=== PATIENT | male | born 1975 | race Caucasian/White ===

== ENCOUNTER 2016-10-04 09:19 | Day surgery (SDC) | payer OTHER ==
[~2016-10-04 09:19] MED LIST: Lactated Ringers 1,000 ML IV SCH; Lidocaine 1%/Sod Bicarbonate in NS 8.4% 1 ML Syringe PRN; Sodium Chloride 0.9% 10 ML Syringe FLUSH PRN
--- NOTE | 2016-10-04 12:01 | PCM.PREANE ---
Preanesthetic Assessment - Procedure Proposed Procedure: Left distal biceps tendon repair - Anesthesia/Transfusion/Family Hx Anesthesia History: Prior Anesthesia Without Reaction Family History of Anesthesia Reaction: No Transfusion History: No Prior Transfusion(s) - Review of Systems General: No Symptoms Pulmonary: No Symptoms Cardiovascular: No Symptoms Gastrointestinal: Other (GERD- currently not effecting him now) Neurological: No Symptoms Other: Reports: None - Physical Assessment NPO Status Date: 10/03/16 NPO Status Time: 18:30 O2 Sat by Pulse Oximetry: 99 Respiratory Rate: 16 Vital Signs: Last Vital Signs Temp 36.2 C 10/04/16 09:50 Pulse 59 L 10/04/16 09:50 Resp 16 10/04/16 09:50 BP 111/80 10/04/16 09:50 Pulse Ox 99 10/04/16 09:50 Height: 1.75 m Weight: 76.204 kg ASA Class: 2 Mental Status: Alert & Oriented x3 Airway Class: Mallampati = 1 Dentition: Reports: Normal Dentition Thyro-Mental Finger Breadths: 3 Mouth Opening Finger Breadths: 3 ROM/Head Extension: Full Lungs: Clear to Auscultation, Normal Respiratory Effort Cardiovascular: Regular Rate, Regular Rhythm - Lab Values: Laboratory Last Values WBC 8.16 K/mm3 (4.23-9.07) 09/28/16 16:27 RBC 4.68 M/mm3 (4.63-6.08) 09/28/16 16:27 Hgb 14.0 gm/L (13.7-17.5) 09/28/16 16:27 Hct 41.1 % (40.1-51.0) 09/28/16 16:27 MCV 87.8 fl (79.0-92.2) 09/28/16 16:27 MCH 29.9 pg (25.7-32.2) 09/28/16 16:27 MCHC 34.1 g/dl (32.2-35.5) 09/28/16 16:27 RDW Std Deviation 41.9 fL (35.1-43.9) 09/28/16 16:27 Plt Count 231 K/mm3 (163-337) 09/28/16 16:27 MPV 9.6 fl (9.4-12.3) 09/28/16 16:27 Neut % (Auto) 59.9 % (34.0-67.9) 09/28/16 16:27 Lymph % (Auto) 26.7 % (21.8-53.1) 09/28/16 16:27 Walker % (Auto) 9.8 % (5.3-12.2) 09/28/16 16:27 Eos % (Auto) 1.8 (0.8-7.0) 09/28/16 16:27 Baso % (Auto) 0.7 % (0.1-1.2) 09/28/16 16:27 Neut # (Auto) 4.88 K/mm3 (1.78-5.38) 09/28/16 16:27 Lymph # (Auto) 2.18 K/mm3 (1.32-3.57) 09/28/16 16:27 Walker # (Auto) 0.80 K/mm3 (0.30-0.82) 09/28/16 16:27 Eos # (Auto) 0.15 K/mm3 (0.04-0.54) 09/28/16 16:27 Baso # (Auto) 0.06 K/mm3 (0.01-0.08) 09/28/16 16:27 Sodium 139 mEq/L (136-145) 09/28/16 16:27 Potassium 4.4 mEq/L (3.5-5.1) 09/28/16 16:27 Chloride 103 mEq/L (98-107) 09/28/16 16:27 Carbon Dioxide 29 mEq/L (21-32) 09/28/16 16:27 Anion Gap 11.4 (5-15) 09/28/16 16:27 BUN 21 mg/dL (7-18) H 09/28/16 16:27 Creatinine 1.1 mg/dL (0.7-1.3) 09/28/16 16:27 Est Cr Clr Drug Dosing TNP 09/28/16 16:27 Estimated GFR (MDRD) > 60 mL/min (>60) 09/28/16 16:27 BUN/Creatinine Ratio 19.1 (14-18) H 09/28/16 16:27 Glucose 94 mg/dL (74-106) 09/28/16 16:27 Calcium 9.6 mg/dL (8.5-10.1) 09/28/16 16:27 MRSA (PCR) Negative 09/28/16 16:27 - Allergies Allergies/Adverse Reactions: Allergies Allergy/AdvReac Type Severity Reaction Status Date / Time codeine Allergy mental Verified 10/01/16 14:26 instability Penicillins Allergy Rash Verified 10/01/16 14:26 - Blood Blood Available: No Product(s) Available: None - Anesthesia Plan Pre-Op Medication Ordered: None - Acknowledgements Anesthesia Type Planned: General Anesthesia (OETT) Pt an Appropriate Candidate for the Planned Anesthesia: Yes Alternatives and Risks of Anesthesia Discussed w Pt/Guardian: Yes Pt/Guardian Understands and Agrees with Anesthesia Plan: Yes PreAnesthesia Questionnaire HEENT History: Reports: Allergic Rhinitis Cardiovascular History: Reports: None Respiratory History: Reports: None Gastrointestinal History: Reports: GERD Genitourinary History: Reports: None FRAUD EXAMINER History: Reports: None Musculoskeletal History: Reports: None Neurological History: Reports: None Psychiatric History: Reports: None Endocrine/Metabolic History: Reports: None Hematologic History: Reports: None Immunologic History: Reports: None Oncologic (Cancer) History: Reports: None Dermatologic History: Reports: Other (See Below) Other Dermatologic 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 - Past Surgical History Head Surgeries/Procedures: Reports: None HEENT Surgical History: Reports: LASIK, Oral Surgery Cardiovascular Surgical History: Reports: None Respiratory Surgical History: Reports: None GI Surgical History: Reports: None Endocrine Surgical History: Reports: None Neurological Surgical History: Reports: None Musculoskeletal Surgical History: Reports: None Oncologic Surgical History: Reports: None - SUBSTANCE USE Smoking Status *Q: Current Every Day Smoker Tobacco Use Within Last Twelve Months: Smokeless Tobacco, Snuff/Dip Second Hand Smoke Exposure: No Recreational Drug Use History: No - HOME MEDS Home Medications: Home Meds Esomeprazole Magnesium [Nexium] 20 mg PO DAILY 10/01/16 [History] Loratadine [Claritin] 10 mg PO DAILY PRN 10/01/16 [History] Magnesium 250 mg PO DAILY 10/01/16 [History] Multivitamin [Poly-Vitamin] 1 tab PO DAILY 10/01/16 [History] - CURRENT (IN HOUSE) MEDS Current Meds: Current Medications Lactated Ringer's (Ringers, Lactated) 1,000 mls @ 125 mls/hr IV ASDIRECTED VIC Stop: 10/04/16 23:00 Last Admin: 10/04/16 10:55 Dose: 125 mls/hr Lidocaine/Sodium Bicarbonate (Buffered Lidocaine 1% In Ns 8.4%) 0.25 ml .XX ONETIME PRN PRN Reason: Prior to IV Start Stop: 10/04/16 18:00 Last Admin: 10/04/16 10:55 Dose: 0.25 ml Sodium Chloride (Saline Flush) 10 ml FLUSH ASDIRECTED PRN PRN Reason: Keep Vein Open Stop: 10/04/16 18:00
[2016-10-04] MEDS ORDERED: fentaNYL 250 MCG/5 ML SDV ONE (12:27)
[2016-10-04] MEDS ORDERED: Midazolam 1 MG/ML 2 ML SDV ONE (12:27)
[2016-10-04] MEDS ORDERED: Propofol 200 MG/20 ML SDV ONE (12:27)
[2016-10-04] MEDS ORDERED: Lidocaine 1% 4 ML ONE (12:28)
[2016-10-04] MEDS ORDERED: Ondansetron 4 MG/2 ML SDV ONE (12:28)
[2016-10-04] MEDS ORDERED: Rocuronium 50 MG/5 ML Vial ONE (12:28)
[2016-10-04] MEDS ORDERED: Dexamethasone 4 MG/ML 5 ML MDV ONE (12:28)
[2016-10-04] MEDS ORDERED: ceFAZolin 1 GM Vial ONE (12:30)
[2016-10-04] MEDS ORDERED: Bupivacaine 0.25% 30 ML SDV ONE (12:36)
[2016-10-04] MEDS ORDERED: ePHEDrine 50 MG/ML SDV ONE (14:05)
[2016-10-04] MEDS ORDERED: Neostigmine Methylsulfate 10 MG/10 ML MDV ONE (14:20)
[2016-10-04] MEDS ORDERED: Ketorolac 30 MG/ML SDV ONE (14:40)
[2016-10-04] MEDS ORDERED: Lactated Ringers 1,000 ML ONE ×2 (14:45)
--- NOTE | 2016-10-04 15:31 | PCM.POSTAN ---
POST ANESTHESIA ASSESSMENT - MENTAL STATUS Mental Status: Alert - VITAL SIGNS Pulse Rate: 81 SaO2: 92 Resp Rate: 15 Blood Pressure: 113/76 Temperature: 37.1 C - RESPIRATORY Respiratory Status: Respiratory Rate WNL, Airway Patent, O2 Saturation Stable - CARDIOVASCULAR CV Status: Pulse Rate WNL, Blood Pressure Stable - GASTROINTESTINAL GI Status: No Symptoms - PAIN Pain Score: 6 (PACU currently treating pain ) - POST OP HYDRATION Hydration Status: Adequate & Stable
[2016-10-04] MEDS ORDERED: diphenhydrAMINE 50 MG/ML SDV IVPUSH PRN (15:32)
[2016-10-04] MEDS ORDERED: fentaNYL 100 MCG/2 ML SDV IVPUSH PRN (15:32)
[2016-10-04] MEDS ORDERED: Ondansetron 4 MG/2 ML SDV IVPUSH PRN (15:32)
[2016-10-04] MEDS ORDERED: HYDROmorphone 0.5 MG/0.5 ML Syringe IVPUSH PRN (15:32)
[2016-10-04] MEDS ORDERED: Meperidine PF 50 MG/ML Syringe IVPUSH PRN (15:32)
[2016-10-04] MEDS: fentaNYL 100 MCG/2 ML SDV ONE ×2 (15:35→15:51)
[2016-10-04] MEDS ORDERED: fentaNYL 100 MCG/2 ML SDV ONE (15:44)
--- NOTE | 2016-10-04 16:23 | CR ---
Left elbow: Six fluoroscopic spot views were obtained of the left elbow showing biceps tendon repair. Fluoroscopy time given as 17.5 seconds. Impression: 1. Findings as noted above. Diagnostic code #2
[2016-10-04] MEDS ORDERED: Acetaminophen/HYDROcodone 325-5 MG Tab PO ONE (16:35)
[2016-10-04 17:37] VITALS: BP 125/95
--- NOTE | 2016-10-07 22:47 | PCM.OPNOTE ---
- General Post-Op/Procedure Note Date of Surgery/Procedure: 10/04/16 Operative Procedure(s): left distal biceps tendon repair Pre Op Diagnosis: left distal biceps tendon rupture Post-Op Diagnosis: Same Anesthesia Technique: General LMA, Local Primary Surgeon: Braden Khan Anesthesia Provider: Cristian Pino Control Clerk Food And Beverage: Peyton aJcobs EBL in mLs: 5 Complications: None Condition: Good
--- NOTE | 2016-10-07 23:39 | OR ---
DATE OF OPERATION: 10/04/2016 SURGEON: Braden Khan MD OPERATION PERFORMED: Left distal biceps tendon repair. PREOPERATIVE DIAGNOSIS: Left distal biceps tendon rupture. POSTOPERATIVE DIAGNOSIS: Left distal biceps tendon rupture. ANESTHESIA: General LMA with local. ANESTHESIA PROVIDER: Dr. Cristian Pino. REPAIRER AND CHECKER: Keely Diaz PA-C. ESTIMATED BLOOD LOSS: 5 mL. COMPLICATIONS: None. CONDITION: Stable. DESCRIPTION OF PROCEDURE: The patient was identified in the preop holding area. Proper site was marked and identified by the surgeon. The patient was taken back to the operating theater, where after adequate anesthesia, the patient's left upper extremity had a nonsterile tourniquet applied and was then sterilely prepped and draped in the usual sterile fashion. OR time-out was performed. The patient received 2 g IV Ancef. At this time, the left upper extremity was exsanguinated. Tourniquet was insufflated to 250 mmHg. A transverse incision was then made directly over the radial tuberosity. Joint dissection was taken down with the biceps tendon. The biceps tendon was noted to be peeled off its attachment. The radius at this time it was resected completely off and was thinned and then a FiberLoop was stitched through the last 2 cm of the biceps tendon. At this time, guide pin was placed in a distal 30 degree ulnar deviation into the radial tuberosity under direct C-arm fluoroscopy. It was put through both cortices at this time and an 8-mm reamer was then used through the proximal cortex only. At this time, the guide pin was then removed, the EndoButton was then placed on the biceps tendon and the FiberWire, and this was then placed through the distal cortex and was flipped and the distal biceps tendon was then shuttled down into the drill hole. A knot was then placed to make sure that it stayed in place and then a 7-mm Arthrex anchor was then tried to be placed in the drill hole, but it was found to be a little bit loose and 8-mm was then placed and found to have a good bite. This was then had a knot tied over the top of it. It was found to have adequate repair and had good strength with no pull out noted on range of motion. At this time, adequate saline was then irrigated through the wound. A 3-0 Vicryl was used subcutaneously and Monocryl was used for the skin with Dermabond. The patient was placed in a posterior slab splint in roughly 60 degrees and will come out of the splint to check the incision at his followup. JESSY /[id number]
== END 2016-10-04 17:30 | disposition home or self-care (01) ==
LOC: JD.SDS 09:19
PROVIDERS: ATTEND Orthopaedic Surgery
DX: S46.212A Strain of muscle, fascia and tendon of other parts of biceps, left arm, initial encounter (principal); K21.9 Gastro-esophageal reflux disease without esophagitis; Z88.0 Allergy status to penicillin; Z88.8 Allergy status to other drugs, medicaments and biological substances; Z87.891 Personal history of nicotine dependence; J30.2 Other seasonal allergic rhinitis; Z79.899 Other long term (current) drug therapy; Z98.890 Other specified postprocedural states
CPT/HCPCS: 24341; 36415; 76000; 80048; 85025; 87641; A9270; C1713; C1776; J0690; J1100; J1885; J2250; J2405; J2710; J3010; J7120; 01710; J2704; J3490

== ENCOUNTER 2022-01-27 03:55 | Emergency (ER) | payer OTHER ==
[2022-01-27 04:07] VITALS: BP 129/90; PULSE 90
[2022-01-27] MEDS ORDERED: Ibuprofen 600 MG Tab PO ONE (04:24)
[2022-01-27] MEDS ORDERED: Ondansetron 4 MG Tab.DIS PO ONE (04:25)
[2022-01-27 05:38] LABS: CORONAVIRUS COVID-19 NAA POSITIVE (NEGATIVE)
== END 2022-01-27 05:58 | disposition home or self-care (01) ==
LOC: JD.ED 03:55
DX: U07.1 COVID-19 (principal); K21.9 Gastro-esophageal reflux disease without esophagitis; Z88.5 Allergy status to narcotic agent
CPT/HCPCS: 0240U; 99283; A9270

== ENCOUNTER 2023-03-16 12:17 | Emergency (ER) | payer OTHER ==
[2023-03-16 12:27] VITALS: BP 138/87; PULSE 75
[2023-03-16] MEDS ORDERED: Diphtheria,Pertussis(Acell),Tetanus Vaccine 0.5 ML Syringe IM ONE (12:46)
[2023-03-16] MEDS ORDERED: Lidocaine 1% 10 ML MDV INJECT ONE (14:30)
== END 2023-03-16 15:25 | disposition home or self-care (01) ==
LOC: JD.ED 12:17
DX: S01.81XA Laceration without foreign body of other part of head, initial encounter (principal); S06.0X1A Concussion with loss of consciousness of 30 minutes or less, initial encounter; K21.9 Gastro-esophageal reflux disease without esophagitis; Z88.0 Allergy status to penicillin; Z23 Encounter for immunization
CPT/HCPCS: 12001; 12011; 70450; 70450-26; 90471; 90715; 99282; 99284-25; J3490